=== PATIENT | female | born 1945 | race Two or more races ===

== ENCOUNTER 2019-09-15 01:15 | Inpatient (IN) | payer OTHER ==
[~2019-09-15] VITALS: Ht 160 cm; Wt 72.6 kg
--- NOTE | 2019-09-15 01:39 | NUR ---
PACIENTE QUE LLEGA EN COMPANIA DE PERSONAL DE EMERGENCIAS MEDICAS Y FAMILIAR SE BUEN PATRON RESPIRATORIO. SE OBSERVA CON ICTERICIA. ADBOMEN DISTENDIDO, ALERTA COSNCIENTE Y ORIENTADA EN PERSONA. FAMILIAR REFIERE QUE LA PACIENTE PRESENTO VOMITOS MARIBEL EL ZAC Y DOLOR ABDOMINAL.
[2019-10-20] MEDS ORDERED: FAMOTIDINE20 MG PO (11:58)
[2019-10-20] MEDS ORDERED: MICRO-K 1010 MEQ PO (11:58)
[2019-10-20] MEDS ORDERED: FERROUS SULFAT325 M1 PO (11:58)
[2019-10-20] MEDS ORDERED: TOPROL XL100 M1 PO (11:58)
[2019-10-20] MEDS ORDERED: FLAGYL500MG PO (11:58)
[2019-10-20] MEDS ORDERED: INTESTINEX680 M1 PO (11:58)
[2019-10-20] MEDS ORDERED: HYDRODIURIL12.5 MG PO (11:58)
[2019-10-20] MEDS ORDERED: LEVOFLOXACIN750 MG PO (11:58)
== END 2019-10-20 12:34 | disposition home or self-care (01) | DRG 417 ==
LOC: ER 01:15 → SURH 02:55 → ICU 02:55 → ICU-2 02:55 → ICU 18:32 → SURH 09-21 18:50
PROVIDERS: Surgery; ADMIT Internal Medicine Cardiovascular Disease; ATTEND Internal Medicine Cardiovascular Disease
PROC: 0F944ZZ Drainage of Gallbladder, Percutaneous Endoscopic Approach (ICD-10-PCS; 2019-09-15)
PROC: 4A033R1 Measurement of Arterial Saturation, Peripheral, Percutaneous Approach (ICD-10-PCS; 2019-09-15)
PROC: 3E0F7GC Introduction of Other Therapeutic Substance into Respiratory Tract, Via Natural or Artificial Opening (ICD-10-PCS; 2019-09-15)
PROC: BW28ZZZ Computerized Tomography (CT Scan) of Head (ICD-10-PCS; 2019-09-15)
PROC: BB24ZZZ Computerized Tomography (CT Scan) of Bilateral Lungs (ICD-10-PCS; 2019-09-15)
PROC: BW21ZZZ Computerized Tomography (CT Scan) of Abdomen and Pelvis (ICD-10-PCS; 2019-09-15)
PROC: B246ZZZ Ultrasonography of Right and Left Heart (ICD-10-PCS; 2019-09-15)
PROC: 0FT44ZZ Resection of Gallbladder, Percutaneous Endoscopic Approach (ICD-10-PCS; principal; 2019-09-15 11:00)
PROC: 05HY33Z Insertion of Infusion Device into Upper Vein, Percutaneous Approach (ICD-10-PCS; 2019-09-20)
PROC: 0FJB8ZZ Inspection of Hepatobiliary Duct, Via Natural or Artificial Opening Endoscopic (ICD-10-PCS; 2019-09-20)
PROC: 0FJD8ZZ Inspection of Pancreatic Duct, Via Natural or Artificial Opening Endoscopic (ICD-10-PCS; 2019-09-20)
PROC: 4A12X4Z Monitoring of Cardiac Electrical Activity, External Approach (ICD-10-PCS; 2019-09-21)
PROC: BW30YZZ Magnetic Resonance Imaging (MRI) of Abdomen using Other Contrast (ICD-10-PCS; 2019-09-25)
PROC: BB24ZZZ Computerized Tomography (CT Scan) of Bilateral Lungs (ICD-10-PCS; 2019-09-26)
PROC: BF13YZZ Fluoroscopy of Gallbladder and Bile Ducts using Other Contrast (ICD-10-PCS; 2019-09-30)
PROC: BW21YZZ Computerized Tomography (CT Scan) of Abdomen and Pelvis using Other Contrast (ICD-10-PCS; 2019-10-01)
PROC: BW40ZZZ Ultrasonography of Abdomen (ICD-10-PCS; 2019-10-03)
PROC: BW21ZZZ Computerized Tomography (CT Scan) of Abdomen and Pelvis (ICD-10-PCS; 2019-10-10)
PROC: BW30YZZ Magnetic Resonance Imaging (MRI) of Abdomen using Other Contrast (ICD-10-PCS; 2019-10-17)
DX: K81.0 Acute cholecystitis (principal); K85.10 Biliary acute pancreatitis without necrosis or infection; J98.11 Atelectasis; J95.89 Other postprocedural complications and disorders of respiratory system, not elsewhere classified; R78.81 Bacteremia; K82.A2 Perforation of gallbladder in cholecystitis; K82.A1 Gangrene of gallbladder in cholecystitis; B96.7 Clostridium perfringens [C. perfringens] as the cause of diseases classified elsewhere; B96.29 Other Escherichia coli [E. coli] as the cause of diseases classified elsewhere; B96.6 Bacteroides fragilis [B. fragilis] as the cause of diseases classified elsewhere; E80.6 Other disorders of bilirubin metabolism; I10 Essential (primary) hypertension; R09.02 Hypoxemia; Z20.828 Contact with and (suspected) exposure to other viral communicable diseases
CPT/HCPCS: 74181; 74185

== ENCOUNTER → 2019-11-21 | Outpatient (CLI) | payer OTHER ==
[~2019-11-21] MED LIST: FAMOTIDINE20 MG PO; FERROUS SULFAT325 M1 PO; FLAGYL500MG PO; HYDRODIURIL12.5 MG PO; INTESTINEX680 M1 PO; LEVOFLOXACIN750 MG PO; MICRO-K 1010 MEQ PO; TOPROL XL100 M1 PO
== END | disposition home or self-care (01) ==
LOC: RAD 11:48
PROVIDERS: ATTEND Internal Medicine Cardiovascular Disease
DX: R10.84 Generalized abdominal pain (principal)

== ENCOUNTER 2020-03-27 09:10 | Outpatient (CLI) | payer OTHER | END 2020-03-27 09:14 | disposition home or self-care (01) | LOC: MAMO-SONO 09:10 | PROVIDERS: ATTEND Internal Medicine Cardiovascular Disease | DX: Z12.31 Encounter for screening mammogram for malignant neoplasm of breast (principal); N64.59 Other signs and symptoms in breast; N64.4 Mastodynia ==

== ENCOUNTER 2020-03-27 11:49 | Outpatient (CLI) | payer OTHER | END 2020-03-27 11:59 | disposition home or self-care (01) | LOC: NUCLEAR 11:49 | PROVIDERS: ATTEND Internal Medicine Cardiovascular Disease | DX: M81.0 Age-related osteoporosis without current pathological fracture (principal) ==

== ENCOUNTER 2020-10-21 08:00 | Outpatient (CLI) | payer OTHER | END 2020-10-21 08:30 | disposition home or self-care (01) | LOC: PPH VACUNA 08:00 | DX: Z23 Encounter for immunization (principal) ==

== ENCOUNTER 2021-06-14 08:00 | Outpatient (CLI) | payer OTHER | END 2021-06-14 08:30 | disposition home or self-care (01) | LOC: PPH VACUNA 08:00 | PROVIDERS: ATTEND Emergency Medicine Pediatric Emergency Medicine | DX: Z23 Encounter for immunization (principal) ==

== ENCOUNTER 2021-10-23 06:31 | Emergency (ER) | payer OTHER ==
[~2021-10-23] VITALS: Ht 157.5 cm; Wt 63.5 kg
== END 2021-10-23 10:29 ==
LOC: ER 06:31
DX: S01.01XA Laceration without foreign body of scalp, initial encounter (principal); W13.3XXA Fall through floor, initial encounter; Z91.81 History of falling; Y93.9 Activity, unspecified; Y92.009 Unspecified place in unspecified non-institutional (private) residence as the place of occurrence of the external cause; Y99.9 Unspecified external cause status; Z91.041 Radiographic dye allergy status

== ENCOUNTER 2021-12-15 12:54 | Outpatient (CLI) | payer OTHER | END 2021-12-15 13:04 | disposition home or self-care (01) | LOC: PPH VACUNA 12:54 | PROVIDERS: ATTEND Emergency Medicine Pediatric Emergency Medicine | DX: Z23 Encounter for immunization (principal) ==

== ENCOUNTER 2022-10-25 07:34 | Outpatient (CLI) | payer OTHER | END 2022-10-25 07:49 | disposition home or self-care (01) | LOC: MRI 07:34 | DX: M17.11 Unilateral primary osteoarthritis, right knee (principal); M25.561 Pain in right knee | CPT/HCPCS: 73721 ==

== ENCOUNTER 2023-04-19 08:31 | Outpatient (CLI) | payer OTHER | END 2023-04-19 08:33 | disposition home or self-care (01) | LOC: NUCLEAR 08:31 | PROVIDERS: ATTEND Internal Medicine Cardiovascular Disease | DX: I35.0 Nonrheumatic aortic (valve) stenosis (principal); I10 Essential (primary) hypertension ==

== ENCOUNTER 2024-05-09 13:14 | Outpatient (CLI) | payer OTHER | END 2024-05-09 13:17 | disposition home or self-care (01) | LOC: MRI 13:14 | PROVIDERS: ATTEND Internal Medicine Cardiovascular Disease | DX: S80.911A Unspecified superficial injury of right knee, initial encounter (principal); M25.561 Pain in right knee | CPT/HCPCS: 73721 ==